=== PATIENT | female | born 1945 | race African-American/Black ===

== ENCOUNTER 2018-12-24 03:35 | Inpatient (IN) ==
[2018-12-24] MEDS ORDERED: NITROGLYCERIN TOP ONE (03:51)
--- NOTE | 2018-12-24 03:55 | PROVIDER DOCUMENTATION ---
HPI-Respiratory General - General Chief Complaint: Shortness of Breath Stated Complaint: sob Time Seen by Provider: 12/24/18 03:44 Allergies/Adverse Reactions: Patient Allergies Allergy/AdvReac Type Severity Reaction Status Date / Time Antihistamines - Alkylamine AdvReac Severe SHORTNESS Verified 12/24/18 03:49 OF BREATH Home Medications: Home Medication List Medication Instructions Recorded Confirmed Last Taken Type Albuterol Sulfate Inhaler 2 puff INH Q6H PRN PRN #1 inhaler 11/23/13 12/24/18 05/08/14 08:00 Rx [Ventolin Hfa] Amlodipine Besylate [Norvasc] 1 tab PO DAILY 12/24/18 12/24/18 Unknown History Atorvastatin Calcium [Lipitor] 1 tab PO QHS 12/24/18 12/24/18 Unknown History Fluticasone/Salmeterol [Advair 2 puff INH DAILY 12/24/18 12/24/18 Unknown Hist ory 500-50 Diskus] Furosemide 1 tab PO DAILY PRN 12/24/18 12/24/18 Unknown History Gabapentin 1 cap PO QHS 12/24/18 12/24/18 Unknown History Glipizide 1 tab PO DAILY 12/24/18 12/24/18 Unknown History Hydrocodone/Acetaminophen 1 tab PO Q8HR PRN 12/24/18 12/24/18 Unknown History [Hydrocodone-Acetamin 10-325 mg] Linaclotide [Linzess] 1 cap PO DAILY 12/24/18 12/24/18 Unknown History Losartan Potassium [Cozaar] 1 tab PO DAILY 12/24/18 12/24/18 Unknown History Metformin HCl 1 tab PO BID 12/24/18 12/24/18 Unknown History Metoclopramide HCl 1 tab PO DAILY 12/24/18 12/24/18 Unknown History Omeprazole [Prilosec] 1 cap PO DAILY 12/24/18 12/24/18 Unknown History Sitagliptin Phosphate [Januvia] 1 tab PO DAILY 12/24/18 12/24/18 Unknown History - History of Present Illness-Resp Quality of Pain: reports: none Severity in ED: reports: mild Onset/Duration: reports: 4-6 hours ago (last night, unable to sleep) Timing: reports: improving Context: denies: recent foreign travel, insect bite (possible tick), recent chemotherapy, multiple patients with similar complaints Exposure: reports: unknown cause Cough Quality/Degree: reports: mild, productive cough Episode Frequency: occasional episodes Current Respiratory Medication Therapy: Initiated see nurses note Modifying Factors: improves with: nothing. worse with: antibiotics Associated Symptoms: reports: cough. denies: chest pain/soreness, headache Similar Symptoms Previously?: Yes Recently seen or treated by another doctor?: No Review of Systems - Adult - REVIEW OF SYSTEMS - ADULT Constitutional: reports: no symptoms reported Eyes: reports: no symptoms reported Ears, Nose, Mouth & Throat: reports: no symptoms reported Cardiovascular: reports: see HPI Respiratory: reports: no symptoms reported Gastrointestinal: reports: constipation Genitourinary: reports: no symptoms reported Musculoskeletal: reports: no symptoms reported Integumentary: reports: no symptoms reported Neurological: reports: no symptoms reported Psychiatric: reports: no symptoms reported Endocrine: reports: no symptoms reported Hematologic/Lymphatic: reports: no symptoms reported Allergic/Immunologic: reports: no symptoms reported All Other Systems: Reviewed and Negative Past History - Adult - PAST MEDICAL HISTORY-ADULT Review of Records: reports: Nursing Assessment Review, Medications Reviewed, Social history reviewed & non-contributory. Major Childhood Illnesses: reports: denies history Cardiovascular: reports: cardiac disease, HTN, hyperlipidemia Respiratory: reports: denies history Gastrointestinal: reports: GERD Obstetrical/Gynecological: reports: denies history Genitourinary: reports: denies history Musculoskeletal: Neurological: reports: denies history Endocrine/Immune: reports: Diabetes Other Conditions: reports: denies history - PRIOR SURGERIES/PROCEDURES Surgical/Procedure History: reports: hysterectomy, orthopedic (extremity) (total hip replacement,L knee arthroscopy,carpal tunnel,neck) - IMMUNIZATION STATUS Childhood Immunizations: See Nurse Assessment Flu Vaccine: See Nurse Assessment - FAMILY HISTORY Family History: diabetes, CAD over 55 yo Physical Exam-General - PHYSICAL EXAM-ADULT Initial Vital Signs Reviewed: Yes - CONSTITUTIONAL General Appearance: appears well, alert, no apparent distress - EYES Eyes: PERRL/EOMI, pink conjunctivae - HEAD, EARS, NOSE, MOUTH & THROAT HENMT: normocephalic/atraumatic, moist mucous membranes, normal ENT inspection - NECK Neck: non-tender, full range of motion, supple - RESPIRATORY Respiratory: chest non-tender, lungs clear, normal breath sounds - CARDIOVASCULAR Cardiovascular: normal peripheral pulses, regular rate, rhythm, no edema - GASTROINTESTINAL (ABDOMEN) Abdominal Exam: non tender, soft - MUSCULOSKELETAL Back Exam: normal inspection Extremity: normal range of motion, non-tender - SKIN Integumentary: normal color, normal turgor - NEUROLOGIC Neurologic: fiscal services manager II-XII nml as tested, grossly normal, no motor/sensory deficits - PSYCHIATRIC Psych/Mental Status: normal mood/affect, normal thought content, normal thought process, oriented x 3 Progress - PLAN OF CARE/RESULTS Progress/Plan/Lab Results: Vital Signs - 8 hr 12/24/18 03:41 12/24/18 03:47 12/24/18 04:03 Temperature 98.8 F Pulse Rate 81 78 Respiratory Rate 20 19 Blood Pressure 202/85 202/85 191/80 O2 Sat by Pulse Oximetry 96 96 95 12/24/18 04:33 12/24/18 04:48 12/24/18 04:53 Temperature Pulse Rate 78 82 85 Respiratory Rate 20 12 19 Blood Pressure 195/87 199/85 O2 Sat by Pulse Oximetry 95 95 95 12/24/18 05:00 12/24/18 05:03 12/24/18 06:01 Temperature Pulse Rate 87 79 85 Respiratory Rate 13 16 15 Blood Pressure 186/100 191/91 O2 Sat by Pulse Oximetry 96 95 93 L 12/24/18 06:03 12/24/18 06:20 Temperature Pulse Rate 83 71 Respiratory Rate 17 14 Blood Pressure 191/85 O2 Sat by Pulse Oximetry 95 97 Laboratory Results - last 24 hr 12/24/18 12/24/18 12/24/18 04:02 04:02 04:02 WBC 12.47 H RBC 4.85 Hgb 13.1 Hct 40.3 MCV 83.1 MCH 27.0 MCHC 32.5 L RDW Std Deviation 15.9 H Plt Count 200 MPV 12.9 H Immature Gran % (Auto) 0.5 Neut % (Auto) 68.9 Lymph % (Auto) 17.6 L Mckenzie % (Auto) 7.9 Eos % (Auto) 4.7 Baso % (Auto) 0.4 Immature Gran # (Auto) 0.06 H Neut # (Auto) 8.60 H Lymph # (Auto) 2.19 Mckenzie # (Auto) 0.99 H Eos # (Auto) 0.58 Baso # (Auto) 0.05 PT INR PTT (Actin FS) D-Dimer, Quantitative 0.73 H Sodium 143 Potassium 3.6 Chloride 103 Carbon Dioxide 25 Anion Gap 15 BUN 9 Creatinine 0.5 Estimated GFR/1.73 m2 > 60 BUN/Creatinine Ratio 18 Glucose 127 H Calculated Osmolality 285 Calcium 9.9 Total Bilirubin 0.29 AST 21 ALT 17 Alkaline Phosphatase 115 H Troponin T Jpt-J-Bvdatoklcce Pept Total Protein 6.9 Albumin 4.3 Globulin 2.6 Albumin/Globulin Ratio 1.7 12/24/18 12/24/18 12/24/18 04:02 04:02 04:02 WBC RBC Hgb Hct MCV MCH MCHC RDW Std Deviation Plt Count MPV Immature Gran % (Auto) Neut % (Auto) Lymph % (Auto) Mckenzie % (Auto) Eos % (Auto) Baso % (Auto) Immature Gran # (Auto) Neut # (Auto) Lymph # (Auto) Mckenzie # (Auto) Eos # (Auto) Baso # (Auto) PT 12.2 INR 0.90 PTT (Actin FS) 27.3 D-Dimer, Quantitative Sodium Potassium Chloride Carbon Dioxide Anion Gap BUN Creatinine Estimated GFR/1.73 m2 BUN/Creatinine Ratio Glucose Calculated Osmolality Calcium Total Bilirubin AST ALT Alkaline Phosphatase Troponin T < 0.010 Bbf-P-Oimnbuozuln Pept 730 H Total Protein Albumin Globulin Albumin/Globulin Ratio Orders Category Date Time Status CHEST-2 VIEWS [RAD] Stat Exams 12/24/18 03:[address] ANGIOGRM PULMONARY ARTERIES [CT] Stat Exams 12/24/18 05:04 Taken CBC WITH ELECTRONIC DIFF [HEME] Stat Lab 12/24/18 04:02 Completed COMPREHENSIVE METABOLIC PANEL [CHEM] Stat Lab 12/24/18 04:02 Completed D-DIMER [COAG] Stat Lab 12/24/18 04:02 Completed PRO B-NATRIURETIC PEPTIDE Stat Lab 12/24/18 04:02 Completed PROTIME WITH INR [COAG] Stat Lab 12/24/18 04:02 Completed PTT [COAG] Stat Lab 12/24/18 04:02 Completed TROPONIN T Stat Lab 12/24/18 04:02 Completed Nitroglycerin Med 12/24/18 03:51 Discontinued 1 inch TOP NOW ONE Ondansetron [Zofran] Med 12/24/18 04:35 Discontinued 4 mg IV NOW ONE Result Diagrams: 12/24/18 04:02 12/24/18 04:02 - REASSESSMENT Reassessment #1 Time Reassessed: 06:33 Status: worsening (patient was noted to have a drop in her O2 sat on exertion. upon reexam, she was wheezing bilaterally.) Reassessment #2 Time Reassessed: 08:03 Status: improving (SYMPTOMS IMPROVING. DENIES CHEST PAIN. SITTING UP SPEAKING IN FULL SENTENCES. DISCUSSED WITH HOSPITALIST WILL ADMIT) Departure - Departure Date of Disposition Decision: 12/24/18 Time of Disposition Decision: 08:02 DIAGNOSIS: Acute dyspnea, Hypoxia, COPD exacerbation Disposition: ADMITTED INPATIENT 09 Certified Medical Emergency: Emergent Condition: Fair Referrals and Follow-Ups: Darnell Ramon MD [Primary Care Provider] - Discharge Education: Steps to Quit Smoking, [id number] - Critical Care Note This patient required my direct & personal management of CC.: No Attestation - Physician/ PATRICK Attestation Patient care was provided by Advanced Practice Provider:: No The physician spent face to face time with patient:: Yes Advanced Practice Provider documentation review:: Supervising physician onsite and consulted in the evaluation and care of this patient. The physician did have a face to face encounter with the patient.
[2018-12-24 04:23] LABS: BASO# 0.05 X1000 (0.0-0.2); BASO% 0.4 % (0.0-0.8); EOS# 0.58 X1000 (0.0-0.7); EOS% 4.7 % (0.0-10.0); HEMATOCRIT 40.3 % (37.0-47.0); HEMOGLOBIN 13.1 g/dL (12.0-16.0); IMM GRAN# 0.06 X1000 (0.0-0.04); IMM GRAN% 0.5 % (0.0-0.5); LYMPH# 2.19 X1000 (1.2-3.4); LYMPH% 17.6 % (20.5-51.1); MCHC 32.5 g/dL (33-37); MCV 83.1 FL (81-99); MONO# 0.99 X1000 (0.11-0.59); MONO% 7.9 % (1.7-9.3); MPV 12.9 FL (7.4-10.4); NEUT% 68.9 % (42.2-75.2); PLT 200 X1000 (130-400); RBC 4.85 XMIL (4.2-5.4); RDW 15.9 % (11.5-14.5); WBC 12.47 X1000 (4.8-10.8)
[2018-12-24 04:29] LABS: INR 0.9; PROTIME 12.2 Seconds (11.0-16.0)
[2018-12-24] MEDS ORDERED: ZOFRAN IV ONE (04:35)
[2018-12-24 04:39] LABS: PTT 27.3 Seconds (22.3-41.8)
[2018-12-24 04:56] LABS: AGAP 15; CHLORIDE 103 mmol/L (98-107); GLUCOSE 127 mg/dL (70-104); POTASSIUM 3.6 mmol/L (3.5-5.1); SODIUM 143 mmol/L (136-145); TCO2 25 mmol/L (25-35)
[2018-12-24 04:57] LABS: ALB/GLOB RATIO 1.7; ALBUMIN 4.3 g/dL (3.5-5.0); ALKALINE PHOSPHATASE 115 U/L (32-104); BUN 9 mg/dL (8-22); CALCIUM 9.9 mg/dL (8.8-10.2); COSMO 285; CREATININE 0.5 mg/dL (0.5-0.9); ESTIMATED GFR > 60; GOT 21 U/L (10-30); GPT 17 U/L (10-36); TOTAL BILIRUBIN 0.29 mg/dL (0.20-1.00); TOTAL PROTEIN 6.9 g/dL (6.3-8.3)
[2018-12-24] MEDS ORDERED: DUONEB (A & A) INH ONE (06:34)
[2018-12-24] MEDS ORDERED: SOLU-MEDROL IV ONE (06:34)
--- NOTE | 2018-12-24 07:19 | Diag Imaging Result Doc PS360 ---
EXAM: CHEST-2 VIEWS 12/24/2018 HISTORY: chest pain TECHNIQUE: PA and lateral chest COMMENT: There is cardiomegaly. There are minimal platelike atelectatic opacities over the lingula and left lower lobe. Overall there has been no significant change otherwise since 02/24/2018. IMPRESSION: Cardiomegaly. Subsegmental atelectasis. Electronically signed by Vladimir Anderson 12/24/2018 7:17 AM
--- NOTE | 2018-12-24 07:30 | Diag Imaging Result Doc PS360 ---
EXAM: CT ANGIOGRM PULMONARY ARTERIES 12/24/2018 HISTORY: difficulty breathing TECHNIQUE: This exam was performed using automated exposure control, adjustment of mA or kV according to patient size, and/or use of iterative reconstruction technique. COMMENT: 3-D MIPS were performed. There are no filling defects in the pulmonary arteries. The thoracic aorta is normal in caliber. There is no evidence of dissection. There are extensive calcifications in the coronary arteries particularly in the left anterior descending artery. The left atrium and ventricle are somewhat distended. There are no abnormal fluid collections. There is no evidence of significant adenopathy. There is some minimal patchy atelectatic appearing opacity in the lingula and left lower lobe. There is some groundglass opacity laterally in the inferior right middle lobe and in the posterior lower lobe. There are nodule seen in the superior segment of the right lower lobe on image 40 both which measure less than 7 mm in diameter. There are some tiny nodule seen in the area of the minor fissure anteriorly. These were present on the previous CT angiogram of the heart performed on 02/23/2014. The superior segment nodules were not included on the [id number] that examination and there are no other previous examinations available for comparison. The opacities in the lingula were apparently present previously, and may be due to fibrosis.. IMPRESSION: Nonspecific pulmonary nodules in the right lower lobe. Stable nodules in the minor fissure which may represent pleural lymph nodes. No evidence of pulmonary emboli. Minimal atelectatic and/or fibrotic changes. Coronary atherosclerosis. Electronically signed by Vladimir Anderson 12/24/2018 7:27 AM
--- NOTE | 2018-12-24 08:56 | EKG Report ---
Test Performed on : 12/24/2018 03:44:50 AM Test Reason : SOB Blood Pressure : / mmHG Vent. Rate : 079 BPM Atrial Rate : 079 BPM P-R Int : 178 ms QRS Dur : 092 ms QT Int : 372 ms P-R-T Axes : 070 -34 105 degrees QTc Int : 426 ms Normal sinus rhythm. Left axis deviation Minimal voltage criteria for LVH, may be normal variant Nonspecific T wave abnormality Abnormal ECG When compared with ECG of 24-FEB-2018 19:11, Questionable change in QRS axis Nonspecific T wave abnormality no longer evident in Anterior leads T wave inversion more evident in Lateral leads Unconfirmed Result
[2018-12-24] MEDS ORDERED: TYLENOL PO PRN (09:15)
[2018-12-24] MEDS ORDERED: VENTOLIN HFA INH PRN (09:15)
[2018-12-24] MEDS ORDERED: ZOFRAN IV PRN (09:15)
[2018-12-24] MEDS ORDERED: LASIX PO PRN (09:15)
--- NOTE | 2018-12-24 09:40 | HISTORY AND PHYSICAL ---
PRIMARY CARE PHYSICIAN: Dr. Darnell Ramon. CHIEF COMPLAINT: Shortness of breath, productive cough, chills and body ache for 1 week that has progressively worsened. HISTORY OF PRESENTING ILLNESS: This is a 73-year-old female, who presents to [facility] with complaints of shortness of breath, a productive cough of white sputum, chills and body aches for 1 week that has progressively worsened. States that she has not seen her primary care physician during this 1 week time period. When she arrived to the emergency room, she was satting 96% on room air. She did have an elevation in her blood pressure at 202/85, but states that she has been taking her medications as prescribed. ER physician reports that she de-satted while she has been here in the emergency room down into the mid 80s. We did a chest x-ray that showed cardiomegaly with subsegmental atelectasis. She was noted to have a little bump in her D-dimer at 0.73. We did a pulmonary arteriogram that showed no evidence of pulmonary emboli, a nonspecific pulmonary nodule in the right lower lobe, minimal atelectatic and/or fibrotic changes. She is noted to be wheezing and rhonchi throughout her lung estrada, so she will be admitted for further evaluation and treatment. PAST MEDICAL HISTORY: Hypertension, hyperlipidemia, GERD, diabetes type 2. PAST SURGICAL HISTORY: Hysterectomy total hip, left knee, carpal tunnel and neck surgery. FAMILY HISTORY: Diabetes and coronary artery disease. SOCIAL HISTORY: She currently lives alone. Smokes a pack of cigarettes a day and has done so for approximately 30 years. Denied any alcohol or illicit drug use. ALLERGIES: Antihistamines and alkylamine. HOME MEDICATIONS: She takes Ventolin 2 puff inhalation q. 6 hours p.r.n., Norvasc 5 mg p.o. daily, Lipitor 80 mg p.o. at bedtime, Advair 500/50 two puffs inhalation daily, Lasix 20 mg one p.o. daily p.r.n., gabapentin 100 mg p.o. at bedtime, glipizide 5 mg p.o. daily, [place] 10 one p.o. q. 8 hours p.r.n., Linzess 290 mcg one capsule p.o. daily, Cozaar 50 mg p.o. daily, metformin 500 mg p.o. b.i.d., metoclopramide 10 mg p.o. daily, Prilosec 40 mg p.o. daily, Januvia 100 mg p.o. daily. LABORATORY DATA: Showed a white blood cell count of 12.47, hemoglobin 13.1, hematocrit 40.3, platelets 200. PT and INR of 12.2 and 0.90 with a D-dimer of 0.73. Sodium 143, potassium 3.6, chloride 103, CO2 25. BUN of 9, creatinine 0.5, glucose 127. Negative troponin. ProBNP of 730. IMAGING STUDIES: A chest x-ray that showed cardiomegaly and subsegmental atelectasis. Pulmonary arteriogram showed an impression of nonspecific pulmonary nodule in the right lower lobe. Stable nodules in the minor fissures, which may represent pleural lymph nodes. No evidence of pulmonary emboli. Minimal atelectatic and/or fibrotic changes and coronary atherosclerosis. REVIEW OF SYSTEMS: She denied any fever. She was positive for chills, body aches, shortness of breath a productive cough of white sputum. Denied any chest pain, abdominal pain, constipation, diarrhea, nausea, vomiting, burning or hurting with urination. PHYSICAL EXAMINATION: VITAL SIGNS: On arrival she had a temperature of 98.8 degrees, pulse 81, respirations 20, blood pressure 202/85, O2 sat 96% on room air. Currently, blood pressure is down to 181/85, O2 sat: 95% on 2 L NC. GENERAL: This is a 73-year-old female, who is lying in the bed. HEENT: Normocephalic and atraumatic. Normal ENT inspection. Oropharynx and nares are clear. EYES: Pupils are equal, round, reactive to light and accommodation. Extraocular movements are intact. NECK: Normal inspection. Normal range of motion. LUNGS: With wheezing and rhonchi throughout entire posterior lung estrada. Equal lung expansion. Chest wall movement noted. HEART: Regular rate and rhythm. No murmurs, rubs, or gallops. ABDOMEN: Soft, nontender, nondistended. Bowel sounds are present x4 quadrants. MUSCULOSKELETAL: She has 5/5 strength x4 extremities. NEUROLOGICAL: The cranial nerves 2-12 are grossly intact. LABS: Reviewed. ASSESSMENT: 1. Acute chronic obstructive pulmonary disease exacerbation. Will start IV steroids, bronchodilator therapy, supplemental oxygen, and antibiotics. 2. Hypertension. Will restart home antihypertensive regimen. 3. Tobacco abuse. Patient counseled about smoking cessation. 4. DVT prophylaxis. Will start heparin. Dictated by MALINDA Daniel for Leonila Selby MD cc: MALINDA Daniel MD Malcolm R. Hendricks, MD I performed a face to face encounter on the patient. I reviewed all labs and imaging on the patient. I agree with the H&P as dictated. MTDD
[2018-12-24] MEDS: NORCO-10 PO PRN (10:10)
[2018-12-24] MEDS: ADVAIR 500/50 DISKUS INH SCH (11:16)
[2018-12-24] MEDS: DUONEB (A & A) INH SCH ×4 (11:16→23:25)
[2018-12-24] MEDS: ROCEPHIN 1 GM in NS 50 ML IV SCH (11:40)
[2018-12-24] MEDS: ZITHROMAX 500 MG/NS 500 MG/250 ML IVPB IV SCH (12:25)
[2018-12-24] MEDS: COZAAR PO SCH (12:50)
[2018-12-24] MEDS: GLUCOPHAGE PO SCH ×2 (12:51→17:51)
[2018-12-24] MEDS: JANUVIA PO SCH (12:52)
[2018-12-24] MEDS: GLUCOTROL PO SCH (12:52)
[2018-12-24] MEDS: PRILOSEC PO SCH (12:53)
[2018-12-24] MEDS: NORVASC PO SCH (12:53)
[2018-12-24] MEDS: LINZESS PO SCH (12:53)
[2018-12-24] MEDS: REGLAN PO SCH (12:53)
[2018-12-24] MEDS: HUMULIN R SUBQ SCH ×3 (12:54→22:12)
[2018-12-24] MEDS ORDERED: XANAX PO ONE (14:08)
[2018-12-24] MEDS ORDERED: SOLU-MEDROL IV SCH (15:00)
[2018-12-24] MEDS: SOLU-MEDROL IV SCH ×2 (15:14→22:12)
--- NOTE | 2018-12-24 21:51 | PULMONOLOGY CONSULTATION ---
DATE: 12/24/2018 REQUESTING PHYSICIAN: Dr. Selby. REASON FOR CONSULTATION: COPD exacerbation. HISTORY OF PRESENT ILLNESS: Ms. Porter is a 73-year-old black female who has been smoking 1 pack a day for approximately 50 years and continues to smoke. The patient noted increased shortness of breath, increased cough and increased wheeze over the last 4 days. The patient presented to the emergency room with significant wheezing. The patient was also significantly hypertensive on presentation with a systolic blood pressure of greater than 200. A CT scan of the thorax with angiography was performed which revealed nonspecific nodules in the right lower lobe with no evidence of pulmonary emboli. The patient has been initiated on steroids and nebulizer therapy. She has had some clinical improvement. PAST MEDICAL HISTORY: 1. Morbid obesity with a BMI greater than 40. 2. Diabetes mellitus. 3. Hypertension. 4. Dyslipidemia. 5. Gastroesophageal reflux. 6. Status post total hip replacement. 7. Status post knee surgery. 8. Status post neck surgery. FAMILY HISTORY: Positive for heart disease and diabetes. SOCIAL HISTORY: Is notable for ongoing tobacco use, which she began in her 20s. She denies alcohol use. REVIEW OF SYSTEMS: As noted in the HPI, but is otherwise negative. PHYSICAL EXAMINATION: General: Reveals an obese white female who has a quiet, soft-spoken voice but is in no distress. She has no increased work of breathing. Blood pressure 162/66, heart rate 82, respiratory rate 18, oxygen saturation 99% on nasal cannula. HEENT: Pupils are equal and reactive. Oropharynx appears clear. Neck: Supple. Chest: Reveals scattered wheezing and rhonchi bilaterally. Cardiac: Regular S1, regular S2. Abdomen: Obese and soft. Extremities: Reveal trace edema. LABORATORY DATA: Sodium 143, potassium 3.6, chloride 103, bicarbonate 25, anion gap 15, BUN 9, creatinine 0.5. White blood count 12.47, hemoglobin 13.1, platelet count 200,000. CT scan as per HPI. IMPRESSION: A 73-year-old with morbid obesity, extensive tobacco history, who presents with 1. Acute hypoxemic respiratory failure. 2. Chronic obstructive pulmonary disease exacerbation. 3. Nonspecific pulmonary nodules. 4. Nicotine addiction and tobacco use. RECOMMENDATIONS: 1. Agree with treatment of chronic obstructive pulmonary disease exacerbation as you are doing. 2. Bottle Filler and encourage patient to discontinue tobacco use. 3. Wean oxygen as tolerated. She may need oxygen at the time of discharge. 4. Long-term, patient would benefit from weight loss. 5. The patient will need a followup CT scan in 3 months for the nonspecific nodules. These will need ongoing monitoring for 2 years if they do not change. cc: MD Darnell Borjas MD
[2018-12-24] MEDS: NEURONTIN PO SCH (22:10)
[2018-12-24] MEDS: LIPITOR PO SCH (22:11)
[2018-12-24] MEDS: XANAX PO SCH (22:11)
[2018-12-25] MEDS: NORCO-10 PO PRN ×3 (00:40→22:28)
[2018-12-25] MEDS: DUONEB (A & A) INH SCH ×6 (03:35→23:05)
[2018-12-25] MEDS: LEVEMIR SUBQ SCH ×3 (05:03→22:28)
[2018-12-25 06:09] LABS: ALLEN TEST YES; BLOOD TYPE ARTERIAL; HCO3-(ACT) 25.6 mmoll (20.0-26.0); MODALITY CANNULA; O2(CT) 17.2 mL/dL (15.0-23.0); O2HB 94.3 % (95.0-99.0); PCO2(98.6) 48 mmHg (35-45); PO2(98.6) 77 mmHg (60-100); SAMPLE BLOOD; SAO2 94.3 % (95.0-100.0); THB 12.9 g/dL (11.5-17.4); pH(98.6) 7.36 (7.35-7.45)
[2018-12-25] MEDS: HUMULIN R SUBQ SCH ×4 (06:54→22:29)
[2018-12-25] MEDS: PRILOSEC PO SCH (06:55)
[2018-12-25] MEDS: SOLU-MEDROL IV SCH ×3 (06:56→22:29)
[2018-12-25] MEDS: ADVAIR 500/50 DISKUS INH SCH (07:58)
[2018-12-25 08:07] LABS: HEMATOCRIT 39.8 % (37.0-47.0); HEMOGLOBIN 12.7 g/dL (12.0-16.0); IMM GRAN# 0.03 X1000 (0.0-0.04); IMM GRAN% 0.2 % (0.0-0.5); LYMPH# 0.95 X1000 (1.2-3.4); LYMPH% 5.4 % (20.5-51.1); MCH 26.8 PG (27-31); MCHC 31.9 g/dL (33-37); MCV 84.1 FL (81-99); MONO# 0.56 X1000 (0.11-0.59); MONO% 3.2 % (1.7-9.3); MPV 13.5 FL (7.4-10.4); NEUT# 16.17 X1000 (1.4-6.5); NEUT% 91.2 % (42.2-75.2); PLT 182 X1000 (130-400); RBC 4.73 XMIL (4.2-5.4); WBC 17.71 X1000 (4.8-10.8)
[2018-12-25 08:24] LABS: HEMOGLOBIN A1C 8.9 % (4.8-6.0)
[2018-12-25] MEDS: ROCEPHIN 1 GM in NS 50 ML IV SCH (08:31)
[2018-12-25] MEDS: ZITHROMAX 500 MG/NS 500 MG/250 ML IVPB IV SCH (08:32)
[2018-12-25] MEDS: REGLAN PO SCH (08:32)
[2018-12-25] MEDS: NORVASC PO SCH (08:33)
[2018-12-25] MEDS: LINZESS PO SCH (08:34)
[2018-12-25] MEDS: NICODERM PATCH TD SCH (08:34)
[2018-12-25] MEDS: JANUVIA PO SCH (08:34)
[2018-12-25] MEDS: COZAAR PO SCH (08:35)
[2018-12-25] MEDS: GLUCOTROL PO SCH (08:35)
[2018-12-25] MEDS: GLUCOPHAGE PO SCH (08:35)
[2018-12-25 08:39] LABS: AGAP 16; BUN 16 mg/dL (8-22); CALCIUM 9.7 mg/dL (8.8-10.2); CHLORIDE 99 mmol/L (98-107); COSMO 289; CREATININE 0.7 mg/dL (0.5-0.9); ESTIMATED GFR > 60; GLUCOSE 257 mg/dL (70-104); POTASSIUM 3.7 mmol/L (3.5-5.1); SODIUM 140 mmol/L (136-145); TCO2 25 mmol/L (25-35)
--- NOTE | 2018-12-25 14:28 | PROGRESS NOTE ---
DATE: 12/25/2018 SUBJECTIVE: This morning, Ms. Porter refers to be doing a little better. According to her, breathing has significantly improved, and she is not having any more coughing. She also has been afebrile since being in the hospital. OBJECTIVE: Vital Signs: Blood pressure is currently 123/48, pulse of 83, respirations 18, temperature 98.5 degrees, the patient is saturating 96% on nasal cannula. General: Ms. Porter is a 73-year-old female. She is in bed. No distress. HEENT: Mucosa is pink and moist. Anicteric. Acyanotic. Neck: Supple. Chest: Air entry is bilaterally reduced. There is some prolonged expiratory phase of respiration, but I did not hear any crackles or rhonchi. Cardiovascular: Regular rate and rhythm. Abdomen: Soft, distended, but nontender. Bowel sounds present. Extremities: No pedal edema. MECHANICAL ENGINEER: The patient is awake, alert, and oriented. LABORATORY DATA: WBC is 17.71, hemoglobin and platelet count are within normal range. ABG has been reviewed and unremarkable. Chemistry is also reviewed and unremarkable. The patient's A1c is 8.9. IMAGING: A chest x-ray yesterday shows cardiomegaly and subsegmental atelectasis. Pulmonary angiogram showed nonspecific pulmonary nodules in the right lower lobe, stable nodules in the minor fissures. No evidence of pulmonary emboli. Minimal atelectasis and/or fibrotic changes and coronary atherosclerosis. ASSESSMENT: 1. Acute hypoxemic respiratory failure secondary to chronic obstructive pulmonary disease exacerbation. 2. Chronic obstructive pulmonary disease exacerbation. The patient is on standard therapy. 3. Pulmonary nodules. The patient has been evaluated by Pulmonary Medicine. Recommendation is to continue with a followup CT scan in about 3 months, and follow up serially for at least 2 years. 4. Ongoing tobacco use and abuse. The patient has been counseled. 5. Diabetes mellitus with A1c of 8.9. The patient is on insulin regimen. 6. Hypertension, controlled. cc: Zach Sue MD
--- NOTE | 2018-12-25 21:54 | PULMONOLOGY PROGRESS NOTE ---
DATE: 12/25/2018 SUBJECTIVE: The patient is awake, alert, and conversant. She reports she ambulated in the hallways today. She reports her breathing has significantly improved. OBJECTIVE: Vital Signs: The patient has been afebrile for the last 24 hours. Blood pressure 123/48, heart rate 83, respiratory rate 18, oxygen saturation 96% on nasal cannula. HEENT: Pupils are equal and reactive. Oropharynx is clear. Neck: Supple. Chest: Reveals good air entry bilaterally. Wheezing has almost completely resolved. Cardiac: S1, S2. Abdomen: Soft and obese. Extremities: Reveal trace edema. LABORATORIES: White blood count 17.7, hemoglobin 12.7, platelet count 182,000. Sodium 140, potassium 3.7, chloride 99, bicarbonate 25, BUN 16, creatinine 0.7, glucose 257. Arterial blood gas reveals a pH 7.36, pCO2 of 48, pO2 of 77. Microbiology reveals no new data. IMPRESSION: A 73-year-old with: 1. Chronic obstructive pulmonary disease exacerbation. 2. Acute hypoxemic respiratory failure, with ongoing decrease in oxygen requirements. 3. Nonspecific pulmonary nodules. 4. Nicotine addiction and tobacco use. RECOMMENDATIONS: 1. Continue current treatment. 2. Counseled patient to discontinue tobacco. 3. Wean oxygen as tolerated. 4. Recommend followup CT scan in 3 months, to be followed for 2 years if they do not change. 5. From a pulmonary standpoint, patient could be discharged tomorrow morning if she continues to improve. cc: Daron Asif MD
[2018-12-25] MEDS: XANAX PO SCH (22:28)
[2018-12-25] MEDS: LIPITOR PO SCH (22:28)
[2018-12-25] MEDS: NEURONTIN PO SCH (22:30)
[2018-12-26] MEDS ORDERED: HUMULIN R SUBQ SCH (00:45)
[2018-12-26] MEDS: DUONEB (A & A) INH SCH ×3 (03:07→11:57)
[2018-12-26] MEDS: PRILOSEC PO SCH (06:15)
[2018-12-26] MEDS: NORCO-10 PO PRN (06:15)
[2018-12-26] MEDS: SOLU-MEDROL IV SCH (06:16)
--- NOTE | 2018-12-26 06:33 | Diag Imaging Result Doc PS360 ---
CHEST-PORTABLE - 12/26/2018 INDICATION: dyspnea COMPARISON: 12/24/2018 FINDINGS: Lung volumes are lower. Stable cardiomegaly. Stable nonspecific infiltrates or small areas of linear atelectasis in the lung bases. No pneumothorax or pleural effusion. IMPRESSION: No change from prior. Electronically signed by Tomas Roche 12/26/2018 6:31 AM
[2018-12-26] MEDS ORDERED: NS 50 ML ONE (07:18)
[2018-12-26] MEDS ORDERED: INSULIN PEN NEEDLES ONE (07:20)
[2018-12-26 07:36] LABS: BASO# 0.01 X1000 (0.0-0.2); HEMATOCRIT 37.6 % (37.0-47.0); HEMOGLOBIN 12.2 g/dL (12.0-16.0); IMM GRAN# 0.07 X1000 (0.0-0.04); IMM GRAN% 0.3 % (0.0-0.5); LYMPH# 0.76 X1000 (1.2-3.4); LYMPH% 3.3 % (20.5-51.1); MCH 26.9 PG (27-31); MCHC 32.4 g/dL (33-37); MONO# 0.75 X1000 (0.11-0.59); MONO% 3.3 % (1.7-9.3); MPV 13.5 FL (7.4-10.4); NEUT% 93.1 % (42.2-75.2); PLT 206 X1000 (130-400); RBC 4.53 XMIL (4.2-5.4); RDW 15.7 % (11.5-14.5); WBC 22.89 X1000 (4.8-10.8)
[2018-12-26 07:42] LABS: AGAP 13; BUN 22 mg/dL (8-22); CHLORIDE 99 mmol/L (98-107); COSMO 281; CREATININE 0.7 mg/dL (0.5-0.9); ESTIMATED GFR > 60; GLUCOSE 141 mg/dL (70-104); MAGNESIUM 1.9 mg/dL (1.5-2.7); PHOSPHORUS 2.3 mg/dL (2.7-4.5); POTASSIUM 3.2 mmol/L (3.5-5.1); SODIUM 138 mmol/L (136-145); TCO2 26 mmol/L (25-35)
[2018-12-26] MEDS: ADVAIR 500/50 DISKUS INH SCH (08:11)
[2018-12-26 08:19] LABS: HYPOCHROM 1+; LYMPHS 2 % (21-51); MONO 2 % (1-9); POIKILOCYTOSIS 1+; SEGS 96 % (42-75)
[2018-12-26 08:20] LABS: BURR CELLS 1+; LARGE PLATELETS 1+
[2018-12-26] MEDS: LINZESS PO SCH (09:29)
[2018-12-26] MEDS: JANUVIA PO SCH (09:29)
[2018-12-26] MEDS: NICODERM PATCH TD SCH (09:29)
[2018-12-26] MEDS: NORVASC PO SCH (09:30)
[2018-12-26] MEDS: REGLAN PO SCH (09:30)
[2018-12-26] MEDS: LEVEMIR SUBQ SCH (09:31)
[2018-12-26] MEDS: ROCEPHIN 1 GM in NS 50 ML IV SCH (09:31)
[2018-12-26 11:32] VITALS: BP 151/69
[2018-12-26] MEDS ORDERED: SOLU-MEDROL IV SCH (18:00)
--- NOTE | 2018-12-26 22:45 | DISCHARGE SUMMARY ---
ADMISSION DATE: 12/24/2018 DISCHARGE DATE: 12/26/2018 DISPOSITION: Home. FOLLOW-UP WILL BE: 1. Dr. Ramon. 2. Dr. Asif. CONSULTATION DURING THIS ADMISSION: Pulmonary Medicine was consulted, patient was seen by Dr. Asif. INVASIVE PROCEDURES DONE DURING ADMISSION: None. IMAGES STUDIES OF SIGNIFICANCE: 1. A chest x-ray on admission showed cardiomegaly and subsegmental atelectasis. 2. A CTA of the lungs showed nonspecific pulmonary nodules in the right lower lobe. No evidence of pulmonary emboli. 3. A repeat chest x-ray did not show any major changes. ADMISSION DIAGNOSES: 1. Acute chronic obstructive pulmonary disease exacerbation. 2. Elevated D-dimer. 3. Hypertension. 4. Tobacco abuse. DIAGNOSIS AT TIME OF DISCHARGE: 1. Acute hypoxemic respiratory failure secondary to chronic obstructive pulmonary disease exacerbation. 2. Chronic obstructive pulmonary disease in moderate to severe exacerbation, improved. 3. Pulmonary nodules. The patient has been evaluated by Pulmonary Medicine. Recommendation is to follow up with a repeat CT scan in about 3 months. 4. Ongoing tobacco use and abuse prior to hospitalization. 5. Diabetes mellitus with presenting A1c of 8.9. 6. Hypertension, controlled. DISCHARGE MEDICATIONS: 1. Ventolin inhaler. 2. Amlodipine 5 mg p.o. daily. 3. Atorvastatin 80 mg p.o. daily. 4. Advair inhaler. 5. Gabapentin 100 mg p.o. at bedtime. 6. Glipizide 5 mg p.o. daily. 7. Linzess 290 mcg p.o. daily. 8. Losartan 50 mg p.o. daily. 9. Metformin 500 p.o. b.i.d. 10. Metoclopramide 10 mg p.o. daily. 11. Januvia 100 mg p.o. daily. 12. Furosemide 20 mg p.o. daily. 13. Omeprazole 40 mg p.o. daily. 14. Xanax 0.5 p.o. at bedtime. 15. Prednisone 20 mg p.o. daily. 16. Spiriva inhaler. 17. Azithromycin 500 p.o. daily. 18. [place] 10 mg p.o. q.8 hours p.r.n. PRESENTING COMPLAINT: Shortness of breath, chills. HISTORY OF PRESENTING COMPLAINT: Ms Porter is a 73-year-old female with a history of COPD, active tobacco use and abuse of more than 1 pack history, came to the emergency department because of shortness of breath. The patient was found to be hypoxemic, was also found to be in COPD exacerbation. A CTA of the lungs was negative PE. However, was also noted to have some pulmonary nodules. Ms Porter was subsequently admitted to the medical floor for further medical management. HOSPITAL COURSE: Ms. Porter improved throughout her hospital course. Her oxygen demand continued to improve, she was evaluated for home 2 oxygen, but did not qualify. She was also evaluated by Pulmonary Medicine (Dr. Asif), who recommended that Ms. Porter needs to follow up with a repeat CT scan of the chest in about 3 months' time because of the pulmonary nodules. Ms. Porter breathing pattern improved, wheezing also resolved. This morning, she was in stable condition. She was saturating 95% on room air. Her vitals: Blood pressure was 151/69, pulse of 87 respiration was 21. Her chest exam was mild prolonged expiratory phase of respiration, but there was no wheezing, no rhonchi. We thought that Ms. Porter was stable for discharge and that she is supposed to follow up within a week with her primary care doctor, and maybe about 2 weeks with Pulmonary Medicine. All the discharge instructions were discussed with her and she voiced understanding. Specifically, we stressed the upmost need for tobacco cessation. Ms Porter lab work this morning revealed mild leukocytosis, predominantly neutrophilic. We think this was steroid-induced, and that she will need to follow this up with her primary care doctor as well. TIME SPENT: For discharge is 35 minutes. cc: Zach Sue MD
== END 2018-12-26 14:17 | disposition home or self-care (01) | DRG 190 ==
LOC: ED 03:35 → 3N 08:27 → SUATTDRO 08:27
PROVIDERS: ATTEND Internal Medicine